=== PATIENT | male | born 1990 | race Caucasian/White ===

== ENCOUNTER 2017-08-24 16:30 | Emergency (ER) | payer MEDICAID ==
[~2017-08-24] VITALS: Ht 170.2 cm; Wt 90.9 kg
[~2017-08-24 16:30] MED LIST: NOCURR
[2017-08-24] MEDS ORDERED: HYDROCODONE/ACETAMINOPHEN 5-325 MG TABLET PO ONE (18:30)
[2017-08-24] MEDS ORDERED: POVIDONE-IODINE 10% 15 ML SOLUTION UD TP ONE (18:30)
[2017-08-24] MEDS ORDERED: PERTUSS(ACELL),DIPH,TET VAC/PF 0.5 ML VIAL IM ONE (18:30)
[2017-08-24 20:51] VITALS: BP 133/74
== END 2017-08-24 21:05 | disposition home or self-care (01) ==
LOC: EMS 16:34
DX: S42.46 Fracture of medial condyle of humerus (principal); V00.131A Fall from skateboard, initial encounter; Y93.51 Activity, roller skating (inline) and skateboarding; Y92.89 Other specified places as the place of occurrence of the external cause; Y99.8 Other external cause status
CPT/HCPCS: 29105; 73080; 90471; 90715; 96372; 99284; J0690

== ENCOUNTER 2022-02-20 12:40 | Emergency (ER) | payer SELFPAY ==
[~2022-02-20] VITALS: Ht 170.2 cm; Wt 77.3 kg
[2022-02-20 12:42] VITALS: BP 130/71
[2022-02-20] MEDS ORDERED: PRED-554 PO (14:05)
[2022-02-20] MEDS ORDERED: IBUP-2070 PO (14:05)
[2022-02-20] MEDS ORDERED: ACYC-138 PO (14:05)
== END 2022-02-20 14:41 | disposition home or self-care (01) ==
LOC: EMS 12:41
DX: B02.9 Zoster without complications (principal)
CPT/HCPCS: 99283